=== PATIENT | female | born 2000 | race Caucasian/White ===

== ENCOUNTER 2018-07-06 20:24 | Emergency (ER) | payer BC ==
[2018-07-06] MEDS ORDERED: Tetan/Diph/Pertus SYR(Tdap)* 0.5 ML SYR(BOOSTRIX) use SYR IM ONE (21:56)
--- NOTE | 2018-07-06 22:04 | ED ---
Laceration/Wound HPI - HPI Summary HPI Summary: 17-year-old female presents with right index finger laceration today. She states that she cut her finger on the serrated knife. Area continues to bleed. No numbness or tingling. Tetanus is out of date. Has no medical conditions. - History of Current Complaint Stated Complaint: RT POINTER FINGER LAC PER PT Time Seen by Provider: 07/06/18 21:44 Pain Intensity: 2 - Allergy/Home Medications Allergies/Adverse Reactions: Allergies Allergy/AdvReac Type Severity Reaction Status Date / Time Sulfa (Sulfonamide Allergy Hives Verified 07/06/18 21:47 Antibiotics) Home Medications: Home Medications Norgestimate-Ethinyl Estradiol [Tri-Sprintec Tablet] 1 tab PO DAILY 07/06/18 [ History Confirmed 07/06/18] Sertraline* [Zoloft*] 75 mg PO DAILY 07/06/18 [History Confirmed 07/06/18] PMH/Surg Hx/FS Hx/Imm Hx Endocrine/Hematology History: Denies: Hx Diabetes Cardiovascular History: Denies: Hx Hypertension Infectious Disease History: No Infectious Disease History: Denies: Traveled Outside the [place] in Last 30 Days - Family History Known Family History: Positive: Diabetes - Social History Alcohol Use: None Substance Use Type: Reports: None Smoking Status (MU): Never Smoked Tobacco Review of Systems Negative: Fever Negative: Chest Pain Negative: Shortness Of Breath Positive: Other - right index finger All Other Systems Reviewed And Are Negative: Yes Physical Exam Triage Information Reviewed: Yes Vital Signs On Initial Exam: Initial Vitals Temp Pulse Resp BP Pulse Ox 97.5 F 90 16 121/84 100 07/06/18 20:33 07/06/18 20:33 07/06/18 20:33 07/06/18 20:33 07/06/18 20:33 Vital Signs Reviewed: Yes Appearance: Positive: Well-Appearing Skin: Positive: Warm, Dry, Other - 2cm by 1/2cm laceration to distal phalanx right index finger Head/Face: Positive: Normal Head/Face Inspection Eyes: Positive: Normal, Conjunctiva Clear ENT: Positive: Pharynx normal Respiratory/Lung Sounds: Positive: Clear to Auscultation, Breath Sounds Present Cardiovascular: Positive: Normal, RRR Musculoskeletal: Positive: Strength/ROM Intact - right index finger, Other - capillary refill<2 secs Neurological: Positive: Normal Psychiatric: Positive: Normal Procedures - Laceration/Wound Repair 1 Location: Other - distal phalanx right index finger Description: Linear Anesthesia: Digital Length, Depth and Shape: 2cm by 1/2cm Irrigated w/ Saline (ccs): 200 Closure: Single Layer Suture Type: Prolene Number of Sutures: 3 Diagnostics - Vital Signs Vital Signs Temp Pulse Resp BP Pulse Ox 07/06/18 20:33 97.5 F 90 16 121/84 100 - Laboratory Lab Statement: Any lab studies that have been ordered have been reviewed, and results considered in the medical decision making process. Laceration Repair Course/Dx - Course Course Of Treatment: 17-year-old female presents with right index finger laceration today. She states that she cut her finger on the serrated knife. Area continues to bleed. No numbness or tingling. Tetanus is out of date. Has no medical conditions. On exam has 2 cm by1/2cm laceration of right index finger. Cleaned area and place 3 sutures. Told to keep very clean and dry. Patient understands agrees with plan. - Differential Dx Differental Diagnoses: Abrasion, Avulsion, Laceration - Clinical Impression Provider Diagnoses: Laceration of right index finger Discharge - Sign-Out/Discharge Documenting (check all that apply): Patient Departure Patient Received Moderate/Deep Sedation with Procedure: No - Discharge Plan Condition: Good Disposition: HOME Patient Education Materials: Care For Your Stitches (ED) Referrals: No Primary Care Phys,NOPCP [Primary Care Provider] - Additional Instructions: Take Tylenol or ibuprofen for pain every 6 hours as needed Keep area clean and dry for 24 hours Return to ED or primary in 8-10 days to have sutures removed Return to ED if develop signs of infection such as fever, spreading redness, or pus. - Billing Disposition and Condition Condition: GOOD Disposition: Home
[2018-07-06 22:32] VITALS: BP 127/75
== END 2018-07-06 22:31 | disposition home or self-care (01) ==
LOC: ED 20:24
DX: S61.210A Laceration without foreign body of right index finger without damage to nail, initial encounter (principal); W26.0XXA Contact with knife, initial encounter; Y92.9 Unspecified place or not applicable; Z23 Encounter for immunization; Z88.2 Allergy status to sulfonamides
CPT/HCPCS: 12001; 90471; 90715; 99282